=== PATIENT | male | born 1975 | race Two or more races ===

== ENCOUNTER 2020-02-23 20:58 | Emergency (ER) | payer MEDICAID ==
[~2020-02-23] VITALS: Ht 175.3 cm; Wt 84.4 kg
[2020-02-23 21:09] VITALS: BP 130/92; Ht 175.3 cm; Wt 84.4 kg
== END 2020-02-23 22:48 | disposition home or self-care (01) ==
LOC: ED 20:58
DX: M54.5 Low back pain (principal); G89.29 Other chronic pain
CPT/HCPCS: J1885